=== PATIENT | female | born 1995 | race Caucasian/White ===

== ENCOUNTER 2017-01-01 15:00 | Emergency (ER) | payer BC ==
[2017-01-01 15:05] VITALS: TEMP 36.7; Ht 170.2 cm
[2017-01-01] MEDS ORDERED: OXYCODONE HCL IR 5 MG TAB (IMMEDIATE RELEASE) PO STA (15:13)
[2017-01-01] MEDS ORDERED: XYLOCAINE 1%/SOD BICARB 20 ML VIAL INFIL STA (15:52)
[2017-01-01] MEDS ORDERED: BUPIVACAINE 0.5 % 5 MG/1 ML MPF 30ML VIAL INFIL STA (16:00)
--- NOTE | 2017-01-01 16:03 | DIAGNOSTIC IMAGING REPORT ---
LEFT FIRST TOE RADIOGRAPHS CLINICAL HISTORY: Left 1st digit trauma. COMPARISON: None FINDINGS: There is soft tissue swelling of the left first toe. There is a lucency with cortical irregularity along the plantar base of the distal phalanx shown on lateral projection. This could reflect a nondisplaced fracture. IMPRESSION: Suspected acute nondisplaced fracture of the plantar base of the distal phalanx of the left first toe. Electronically signed by: Darshan Maldonado M.D. 01/01/2017 4:02 PM Dictated Date/Time: 01/01/2017 4:01 PM
[2017-01-01] MEDS ORDERED: CEPH500C PO (16:31)
[2017-01-01] MEDS ORDERED: OXYC1TAB3 PO (16:31)
[2017-01-01] MEDS ORDERED: CEPHALEXIN 500MG HOME PACK 1 EA BTL PO STA (16:31)
[2017-01-01] MEDS ORDERED: OXYCODONE IR HOME PACK PO STA (16:31)
--- NOTE | 2017-01-01 16:31 | EMERGENCY ROOM VISIT NOTE ---
History First contact with patient: 15:08 Chief Complaint: FOOT PAIN Stated Complaint: L FOOT INJURY DURING FH GAME History of Present Illness The patient is a 21 year old female who presents to the Emergency Room via private vehicle with complaints of "left foot injury during field hockey game". The patient states that 15 minutes prior to arrival she was participating in a club field hockey game. She states that she was making a play, rule out other player struck her in the left great toe with the stick and fall. She notes immediate pain in the left great toe. She points to the left great toe and the left great toe base as a location of the pain she rates as 9/10. She denies any chance of . Tetanus is up-to-date. Review of Systems A complete 6-point Review of Systems was discussed with the patient, with pertinent positives and negatives listed in the History of Present Illness. All remaining Review of Systems questions can be considered negative unless otherwise specified. Past Medical/Surgical History Previous foot fracture Family History Diabetes, high blood pressure, cancer Social History Smoking Status: Never Smoker Social History: Patient lives at home with parents. She denies alcohol and tobacco use. Current/Historical Medications Scheduled Cephalexin Monohydrate (Keflex), 500 MG PO TID Scheduled PRN Oxycodone Ir (Roxicodone Ir), 1-2 TAB PO Q4H PRN for Pain Allergies Coded Allergies: No Known Allergies (Unverified , 01/01/17) Physical Exam Vital Signs Date Time Temp Pulse Resp B/P Pulse Ox O2 Delivery O2 Flow Rate FiO2 01/01/17 16:55 66 16 127/73 100 01/01/17 15:05 36.7 126 20 123/77 98 Room Air Physical Exam VITAL SIGNS - Vital signs and nursing notes were reviewed. Patient is afebrile , normotensive, tachycardic and is saturating well on room air at 98%. GENERAL - 21-year-old female appearing her stated age who is in no acute distress. Communicates well with provider and answers questions appropriately. SKIN - Without rashes. The toenail at the distal aspect of the left great toe is folded back. HEAD - NC/AT. EXTREMITIES - No clubbing or peripheral cyanosis. No pretibial edema present. Patient is vascularly intact in the left lower extremity. There is evidence of the distal fifth of the toenail to be folded back, with slight disruption of the nailbed. No evidence of laceration. No evidence of fracture. +5/5 strength noted in UE/LE bilaterally. She is neurovascularly intact in the left lower extremity. There is tenderness to palpation at the base of the left first digit. Medical Decision & Procedures ER Provider Diagnostic Interpretation: LEFT FIRST TOE RADIOGRAPHS CLINICAL HISTORY: Left 1st digit trauma. COMPARISON: None FINDINGS: There is soft tissue swelling of the left first toe. There is a lucency with cortical irregularity along the plantar base of the distal phalanx shown on lateral projection. This could reflect a nondisplaced fracture. IMPRESSION: Suspected acute nondisplaced fracture of the plantar base of the distal phalanx of the left first toe. Electronically signed by: Darshan Maldonado M.D. 01/01/2017 4:02 PM Dictated Date/Time: 01/01/2017 4:01 PM Medications Administered Medications (Trade) Dose Ordered Sig/Mickie Route Start Time Stop Time Status Last Admin Dose Admin Oxycodone HCl (Roxicodone Immediate Rel Tab) 5 mg NOW STAT PO 01/01/17 15:13 01/01/17 15:14 DC 01/01/17 15:19 5 MG Lidocaine HCl (Buffered Lidocaine 1% Inj) 20 ml ONE STAT INFIL 01/01/17 15:52 01/01/17 15:53 DC 01/01/17 15:59 20 ML Bupivacaine HCl (Marcaine 0.5% MPF Inj) 30 ml NOW STAT INFIL 01/01/17 16:00 01/01/17 16:01 DC 01/01/17 16:00 30 ML Oxycodone HCl (Roxicodone Immediate Rel 5MG Home Pack) 1 homepack UD STAT PO 01/01/17 16:31 01/01/17 16:33 DC 01/01/17 16:31 1 HOMEPACK Cephalexin Monohydrate (Keflex 500MG Home Pack) 1 homepack NOW STAT PO 01/01/17 16:31 01/01/17 16:33 DC 01/01/17 16:31 1 HOMEPACK Medical Decision Patient was seen and evaluated as above. After obtaining a thorough history and physical examination, radiograph was obtained. She was provided 1 OxyIR for her pain. She requested further pain relief of the toe, therefore she was offered a digital block. After obtaining consent, the base of the left first digit was cleansed with Betadine, anesthetized with 4 mL's of 1% buffered lidocaine and 0.5% bupivacaine in a 50/50 ratio. This was tolerated well. The disrupted piece of toenail was debrided, and the toenail was resecured without difficulty. Patient tolerated this well. The area was cleansed and prepped with bacitracin and Telfa. She is provided a postop shoe and crutches. There is a small fracture. She is to follow up with orthopedics. She was provided with a short-term prescription of OxyIR, and Keflex for prophylaxis of infection. She was educated upon management, educated upon worrisome symptoms which to return, had questions regarding discharge and was discharged home in good condition. In the evaluation and treatment of this patient, the following differential diagnoses were considered: Toe Fracture, Toe Sprain, Turf Toe, Gout. [place] Drug Monitoring Program Search Results: patient reviewed within database, no issues identified Impression Primary Impression: Injury of toenail of left foot Additional Impression: Fracture of great toe Departure Information Dispostion Home / Self-Care Condition GOOD Prescriptions Oxycodone Ir (Roxicodone Ir) 5 Mg Tab 1-2 TAB PO Q4H Y for Pain, #15 TAB For Initial Treatment Prov: Jimmy Liang PA-C 01/01/17 Cephalexin Monohydrate (Keflex) 500 Mg Cap 500 MG PO TID for 5 Days, #15 CAP Prov: Jimmy Liang PA-C 01/01/17 Forms HOME CARE DOCUMENTATION FORM, Work Instructions, Additional Instructions: Gloria Camp was seen and evaluated in the emergency department o 01/01/2017. Please excuse her absence on 01/03/2017. Thank you, Forrest Liang PA-C. IMPORTANT VISIT INFORMATION Patient Instructions My [facility] Additional Instructions You have been treated in the Emergency Department for a right great toe injury. You have received pain medicine in the emergency department which impairs your ability to operate a vehicle. It is illegal for you to drive after receiving these medicines. You have been prescribed Oxy IR to be used for pain control. This is a narcotic medication. You cannot drive or consume alcohol while on this medicine. This medicine should only be used for pain that cannot be controlled with over-the- counter pain medicines. You have been prescribed Keflex. This is one tablet every 8 hours to help prevent infection. For pain control, you can use the following [id number] medicines (if >12 yo): - Regular strength (325mg/tab) Tylenol (acetaminophen) 2 tabs every 4-6 hours as needed. Do not exceed 12 tablets in a 24 hour period. Avoid taking more than 4 grams (4000 mg) of Tylenol per day. This includes any other sources of acetaminophen you may take on a regular basis. - Regular strength (200 mg/tab) Advil (ibuprofen) 1-2 tabs every 4-6 hours as needed. Do not exceed a dose of 3200 mg per day. If this is a recent injury (<24 hrs), ice can be applied to the area of pain for the first 3 days to help decrease pain and inflammation. You have been provided the number for an Orthopaedic Surgeon. You should call this number as soon as possible to establish a follow-up visit from today's Emergency Department visit. Keep the ankle brace/splint in place until cleared by Orthopedics. Use the crutches you have been provided to keep ALL weight off of the right toe until weight bearing is tolerable. Return to the Emergency Department if your current symptoms worsen despite treatment course outlined above, or if you develop any of the following symptoms : intractable pain despite aforementioned treatment course or new onset of numbness or tingling of the foot. Please return to the emergency department with any new/concern symptoms. As we discussed please follow-up with orthopedic group of your choice in [place]. Work Instructions Additional Work Instructions: Gloria Camp was seen and evaluated in the emergency department on 01/01/2017. Please excuse her absence on 01/03/2017. Thank you, Jimmy Liang PA-C. Problem Qualifiers
[2017-01-01 16:55] VITALS: BP 127/73; PULSE 66; O2SAT 100
== END 2017-01-01 16:57 | disposition home or self-care (01) ==
LOC: C.EDB 15:03 → C.EDD 16:57
DX: S99.822A Other specified injuries of left foot, initial encounter (principal); S92.425A Nondisplaced fracture of distal phalanx of left great toe, initial encounter for closed fracture; W21.211A Struck by field hockey stick, initial encounter; Z83.3 Family history of diabetes mellitus; Z82.49 Family history of ischemic heart disease and other diseases of the circulatory system